=== PATIENT | female | born 1950 | race Caucasian/White ===

== ENCOUNTER → 2016-11-21 | Outpatient (CLI) | payer OTHER, MEDICARE | LOC: BRMIMAGING 13:33 | PROVIDERS: ATTEND Physician Assistant Medical | DX: Z13.820 Encounter for screening for osteoporosis (principal); M85.80 Other specified disorders of bone density and structure, unspecified site ==

== ENCOUNTER → 2016-11-29 | Outpatient (CLI) | payer OTHER, MEDICARE | LOC: FIMAGING 14:01 | DX: Z12.31 Encounter for screening mammogram for malignant neoplasm of breast (principal) | CPT/HCPCS: G0202 ==

== ENCOUNTER → 2016-12-05 | Outpatient (CLI) | payer OTHER, MEDICARE | LOC: FIMAGING 08:51 | PROVIDERS: ATTEND Obstetrics & Gynecology Gynecology | DX: Z12.39 Encounter for other screening for malignant neoplasm of breast (principal); R92.0 Mammographic microcalcification found on diagnostic imaging of breast | CPT/HCPCS: G0206 ==

== ENCOUNTER → 2018-01-11 | Outpatient (CLI) | payer OTHER, MEDICARE | LOC: FIMAGING 13:24 | PROVIDERS: ATTEND Obstetrics & Gynecology Gynecology | DX: Z12.31 Encounter for screening mammogram for malignant neoplasm of breast (principal) ==